=== PATIENT | male | born 2000 | race African-American/Black ===

== ENCOUNTER 2021-01-21 21:05 | Emergency (ER) | payer OTHER ==
[~2021-01-21] VITALS: Ht 185.4 cm; Wt 121.8 kg
[2021-01-21 21:25] VITALS: BP 151/89
[2021-01-21] MEDS ORDERED: HYDROcodone/APAP 7.5/325MG 1 TAB TABLET PO ONE (21:30)
[2021-01-21] MEDS ORDERED: HYDR-2759 PO (21:40)
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
== END 2021-01-21 21:45 | disposition home or self-care (01) ==
LOC: ER 21:05
DX: T20.22XA Burn of second degree of lip(s), initial encounter (principal); T20.24XA Burn of second degree of nose (septum), initial encounter; T22.111A Burn of first degree of right forearm, initial encounter; T23.121A Burn of first degree of single right finger (nail) except thumb, initial encounter; X08.8XXA Exposure to other specified smoke, fire and flames, initial encounter; Y93.89 Activity, other specified; Y92.89 Other specified places as the place of occurrence of the external cause; Y99.8 Other external cause status
CPT/HCPCS: 99283